=== PATIENT | male | born 2000 | race Caucasian/White ===

== ENCOUNTER 2024-05-05 16:40 | Emergency (ER) | payer OTHER ==
[~2024-05-05] VITALS: Ht 185.4 cm; Wt 95.5 kg
[2024-05-05 16:58] VITALS: TEMP 98.1
[2024-05-05 18:15] VITALS: BP 102/64; PULSE 58
== END 2024-05-05 18:15 | disposition home or self-care (01) ==
LOC: COL.ER 16:40
DX: S06.0X0A Concussion without loss of consciousness, initial encounter (principal); W22.09XA Striking against other stationary object, initial encounter; Y93.01 Activity, walking, marching and hiking; Y92.89 Other specified places as the place of occurrence of the external cause; Y99.0 Civilian activity done for income or pay